=== PATIENT | male | born 1970 | race Caucasian/White ===

== ENCOUNTER 2018-01-18 05:39 | Day surgery (SDC) | payer OTHER ==
[~2018-01-18] VITALS: Ht 182.9 cm; Wt 80.0 kg
[2018-01-18] MEDS ORDERED: LACTATED RINGERS 1,000 ML IV SCH (06:38)
[2018-01-18 06:39] VITALS: BP 169/80
[2018-01-18] MEDS ORDERED: THROMBIN 5,000 UNIT VIAL TP ONE (06:54)
[2018-01-18] MEDS ORDERED: BACITRACIN 50,000 UNIT ONE (06:54)
[2018-01-18] MEDS ORDERED: BUPIVACAINE/PF 0.5% ONE (06:54)
[2018-01-18] MEDS ORDERED: EPINEPHRINE 1 MG/ML, 1ML ONE (06:54)
[2018-01-18] MEDS ORDERED: ALBU8.5H8 INH (07:01)
[2018-01-18] MEDS ORDERED: OMEP-110 PO (07:01)
[2018-01-18] MEDS ORDERED: MONT10TA6 PO (07:01)
[2018-01-18] MEDS ORDERED: LEVO25TA2 PO (07:01)
[2018-01-18] MEDS ORDERED: FAMOTIDINE 20 MG TABLET ONE (07:14)
[2018-01-18] MEDS ORDERED: GABAPENTIN 300 MG CAPSULE ONE (07:14)
[2018-01-18] MEDS ORDERED: MIDAZOLAM 1 MG/ML, 2ML ONE (07:15)
[2018-01-18] MEDS ORDERED: OxyconTIN ER 20 MG TAB.ER ONE (07:15)
[2018-01-18] MEDS ORDERED: FENTANYL PF 250 MCG/5ML ONE (07:15)
[2018-01-18] MEDS ORDERED: ACETAMINOPHEN 500 MG TABLET ONE (07:15)
[2018-01-18] MEDS ORDERED: SUCCINYLCHOLINE 20 MG/ML, 10ML ONE (07:22)
[2018-01-18] MEDS ORDERED: DEXAMETHASONE 4 MG/ML, 1ML ONE (07:22)
[2018-01-18] MEDS ORDERED: PROPOFOL 10 MG/ML, 20ML ONE (07:22)
[2018-01-18] MEDS ORDERED: NEOSTIGMINE 1 MG/ML, 10ML ONE (07:22)
[2018-01-18] MEDS ORDERED: ONDANSETRON 2MG/ML, 2ML ONE (07:22)
[2018-01-18] MEDS ORDERED: GLYCOPYRROLATE 0.2MG/1ML, 5ML ONE (07:22)
[2018-01-18] MEDS ORDERED: CEFAZOLIN 1,000 MG ONE (07:22)
[2018-01-18] MEDS ORDERED: MEPERIDINE/PF 25MG/0.5ML IVPush PRN (07:30)
[2018-01-18] MEDS ORDERED: FAMOTIDINE 20 MG TABLET PO ONE (07:30)
[2018-01-18] MEDS ORDERED: ACETAMINOPHEN 500 MG TABLET PO ONE (07:30)
[2018-01-18] MEDS ORDERED: OXYcodone 5 MG/5 ML ORAL.SOL UDC PO PRN (07:30)
[2018-01-18] MEDS ORDERED: ALBUTEROL SULFATE 2.5 MG/3 ML NPPB PRN (07:30)
[2018-01-18] MEDS ORDERED: GABAPENTIN 300 MG CAPSULE PO ONE (07:30)
[2018-01-18] MEDS ORDERED: OxyconTIN ER 20 MG TAB.ER PO ONE (07:30)
[2018-01-18] MEDS ORDERED: ONDANSETRON 2MG/ML, 2ML IVPush PRN (07:30)
[2018-01-18] MEDS ORDERED: FENTANYL PF 100 MCG/2ML IV PRN (07:30)
[2018-01-18] MEDS ORDERED: PROMETHAZINE 25 MG/ML, 1ML IV PRN (07:30)
[2018-01-18] MEDS ORDERED: morphine SULFATE 10 MG/ML, 1ML IV PRN (07:30)
[2018-01-18] MEDS ORDERED: FENTANYL PF 100 MCG/2ML ONE (09:38)
[2018-01-18] MEDS ORDERED: morphine SULFATE 10 MG/ML, 1ML ONE (09:38)
[2018-01-18] MEDS ORDERED: OXYcodone 5 MG/5 ML ORAL.SOL UDC ONE (09:39)
[2018-01-18] MEDS ORDERED: OXYcodone/APAP 7.5/325MG TABLET PO PRN (13:30)
[2018-01-18] MEDS ORDERED: PHENYLEPHRINE 10 MG/ML ONE (16:50)
[2018-01-18] MEDS ORDERED: ROCURONIUM 10 MG/ML,10ML ONE (16:50)
== END 2018-01-18 14:00 ==
LOC: OUT 05:39
PROVIDERS: ATTEND Neurological Surgery
DX: M48.02 Spinal stenosis, cervical region (principal); M47.26 Other spondylosis with radiculopathy, lumbar region; J45.909 Unspecified asthma, uncomplicated; E03.9 Hypothyroidism, unspecified; K21.9 Gastro-esophageal reflux disease without esophagitis
CPT/HCPCS: 20936; 22551; 22853; 72040; C1713; C1762; C1776; J0171; J0330; J0690; J1100; J2250; J2270; J2370; J2405; J2704; J2710; J3010; J3490; J7120